=== PATIENT | male | born 1990 ===

== ENCOUNTER 2019-01-09 08:35 | Emergency (ER) | payer BC ==
[2019-01-09 08:54] VITALS: BP 125/72
--- NOTE | 2019-01-09 10:24 | UC ---
Throat Pain/Nasal Rhett HPI - HPI Summary HPI Summary: PT IS ON A ROAD TRIP FROM [place]. YESTERDAY DEVELOPED SORE THROAT AND PAIN WITH SWALLOWING. LOW-GRADE TEMPERATURE. NO COUGH OR CONGESTION. NO RESPIRATORY COMPROMISE. MILD RIGHT EAR PAIN. - History of Current Complaint Chief Complaint: UCRespiratory Stated Complaint: SORE THROAT Time Seen by Provider: 01/09/19 08:43 Hx Obtained From: Patient Onset/Duration: Gradual Onset, Lasting Days, Still Present Severity: Moderate Pain Intensity: 8 Pain Scale Used: 0-10 Numeric Cough: None Associated Signs & Symptoms: Positive: Fever. Negative: Dysphagia, FB Sensation , Drooling, Hoarseness - Allergies/Home Medications Allergies/Adverse Reactions: Allergies Allergy/AdvReac Type Severity Reaction Status Date / Time No Known Allergies Allergy Verified 01/09/19 08:54 PMH/Surg Hx/FS Hx/Imm Hx Previously Healthy: Yes - Surgical History Surgical History: Yes Surgery Procedure, Year, and Place: appy remains but had "fatty tissure removed - Family History Known Family History: Positive: Non-Contributory - Social History Alcohol Use: Occasionally Substance Use Type: None Smoking Status (MU): Never Smoked Tobacco Review of Systems All Other Systems Reviewed And Are Negative: Yes Constitutional: Positive: Negative Skin: Positive: Negative ENT: Positive: Sore Throat, Ear Ache Respiratory: Positive: Negative Cardiovascular: Positive: Negative Gastrointestinal: Positive: Negative Physical Exam Triage Information Reviewed: Yes Appearance: Well-Appearing, No Pain Distress, Well-Nourished Vital Signs: Initial Vital Signs Temp 100.2 F 01/09/19 08:49 Pulse 81 01/09/19 08:49 Resp 18 01/09/19 08:49 BP 125/72 01/09/19 08:49 Pulse Ox 99 01/09/19 08:49 Laboratory Tests 01/09/19 08:56 Group A Strep Rapid Negative Vital Signs Reviewed: Yes Eyes: Positive: Conjunctiva Clear ENT: Positive: Hearing grossly normal, TMs normal, Tonsillar swelling - RIGHT > LEFT, Tonsillar exudate - RIGHT > LEFT, Uvula midline. Negative: Trismus, Muffled voice Neck: Positive: Supple, Nontender Respiratory: Positive: No respiratory distress, No accessory muscle use Cardiovascular: Positive: Pulses Normal Abdomen Description: Positive: Soft Musculoskeletal: Positive: No Edema Neurological: Positive: Alert Psychological: Positive: Age Appropriate Behavior Skin: Negative: Rashes Throat Pain/Nasal Course/Dx - Course Course Of Treatment: PATIENT WITH ENLARGED TONSILS AND EXUDATE, RIGHT SIDE MORE SO THAN LEFT. LOW- GRADE FEVER. STREP TEST NEGATIVE. UVULA MIDLINE. NO TRISMUS, NO MUFFLED VOICE. NO LYMPHADENOPATHY. APPEARS NONTOXIC. LOW SUSPICION FOR PERITONSILLAR ABSCESS. HE IS PASSING THROUGH [place] ON A ROAD TRIP. WILL COVER WITH AUGMENTIN TWICE DAILY FOR 10 DAYS. ADVISED PATIENT LOW THRESHOLD FOR PRESENTING TO THE CLOSEST EMERGENCY ROOM SHOULD HIS SYMPTOMS WORSEN. DISCUSSED SIGNS AND SYMPTOMS TO LOOK FOR. - Differential Dx/Diagnosis Provider Diagnosis: Tonsillitis Discharge ED - Sign-Out/Discharge Documenting (check all that apply): Patient Departure All imaging exams completed and their final reports reviewed: No Studies - Discharge Plan Condition: Stable Disposition: HOME Prescriptions: Amoxicillin/Clavulanate TAB* [Augmentin TAB 875*] 875 mg PO BID #20 tab Patient Education Materials: Tonsillitis (ED) Referrals: No Primary Care Phys,NOPCP [Primary Care Provider] - Additional Instructions: STREP TEST NEGATIVE. GIVEN THE APPEARANCE OF YOUR TONSILS AND LOW-GRADE FEVER IN ADDITION TO THE FACT THAT YOU ARE ON A ROAD TRIP WILL GO AHEAD AND COVER WITH ANTIBIOTICS. BE SURE TO TAKE THE MEDICINE FOR THE FULL 10 DAYS. FOLLOW- UP WITH YOUR PCP BACK HOME IF YOUR SYMPTOMS ARE NOT IMPROVING EXPECTED. GO DIRECTLY TO THE CLOSEST EMERGENCY ROOM IF YOU DEVELOP WORSENING PAIN, PERSISTENT FEVER AFTER 48 HOURS ON ANTIBIOTICS, SENSATION THAT YOUR THROAT IS CLOSING OVER/RESPIRATORY COMPROMISE, INABILITY TO SWALLOW OR ANY OTHER CONCERNING SYMPTOMS. - Billing Disposition and Condition Condition: STABLE Disposition: Home
== END 2019-01-09 10:18 | disposition home or self-care (01) ==
LOC: UCEAST 08:35
DX: J03.90 Acute tonsillitis, unspecified (principal)
CPT/HCPCS: 87651; 99202; G0463